=== PATIENT | female | born 1995 | race Caucasian/White ===

== ENCOUNTER 2019-11-12 18:50 | Inpatient (IN) | payer OTHER, SELFPAY ==
[~2019-11-12] VITALS: Ht 165.1 cm; Wt 52.2 kg
--- NOTE | 2019-11-12 18:50 | NUR ---
Patient BIBA ALS accompanied by [facility], transferred to bed 9. RN evaluating patient at bedside.
--- NOTE | 2019-11-12 19:08 | NUR ---
[place] [employer] at bedside.
--- NOTE | 2019-11-12 19:13 | NUR ---
The patient was placed on a 5150 hold by [facility] and subsequently transferred to bed 5 for further care. RN evaluating patient at bedside.
--- NOTE | 2019-11-12 19:30 | NUR ---
23F PRESENTS TO ED BIBA FOR SUICIDAL IDEATION. PT INGESTED UNOBTAINABLE AMOUNT OF SEROQUEL, ZOLOFT AND XANAX. PT APPEARS TO BE LETHARGIC. GCS 12. RESPONSIVE TO PAINFUL STIMULI AND CONFUSED.A/O X 3, TO NAME, DATE OF , EVENT. DENIES HEADACHE. DENEIS SOB/COUGH. RR EVEN AND UNLABORED. PT PLACED IN BED WITH SUICIDE PRECAUTIONS IN PLACE. CONNECTED TO RETORT FEEDER GROUND BONE AND PULSE OXIMETRY. SAFETY PRECAUTIONS IN PLACE WITH HOB ELEVATED, BED LOWEST AND LOCKED, RAILS X 2 . PMHX: DENIES RX: ZOLOFT, SEROQUEL, XANAX. NEGATIVE FOR COVID SCREENING. WEARING A MASK.
--- NOTE | 2019-11-12 19:34 | NUR ---
[facility] aware of patient. Will assistwith placement if and when needed and requested
[2019-11-12] MEDS ORDERED: NACL 0.9% 1,000 ML IV ONE (19:45)
[2019-11-12] MEDS ORDERED: LORazepam 2 MG/ML VIAL IVP ONE (19:45)
--- NOTE | 2019-11-12 20:21 | NUR ---
POISON CONTROL CONTACTED. SPOKE TO CHI REGARDING OVERDOSE OF MEDICATIONS OF PT WITH TAKING XANAX, SEROQUEL, ZOLOFT. INSTRUCTED TO MONITOR patient CMP.
[2019-11-12 20:25] VITALS: BP 135/96
[2019-11-12 20:58] LABS: BASOPHILS # (AUTO) 0.1 K/uL (0.00-0.22); BASOPHILS % (AUTO) 0.7 % (0.0-2.0); EOSINOPHILS % (AUTO) 0.1 % (0.0-4.0); HEMATOCRIT 36.9 % (36-48); HEMOGLOBIN 12.3 g/dL (12.0-16.0); LYMPHOCYTES # (AUTO) 0.6 K/uL (2.5-16.5); LYMPHOCYTES % (AUTO) 8.1 % (20.5-51.1); MEAN CORPUSCULAR HEMOGLOBIN 31 pg (27-31); MEAN CORPUSCULAR HGB CONC 33 g/dL (33-37); MEAN CORPUSCULAR VOLUME 92.6 fL (80-94); MONOCYTES # (AUTO) 0.5 K/uL (0.8-1.0); MONOCYTES % (AUTO) 7.1 % (1.7-9.3); NEUTROPHILS # (AUTO) 6.5 K/uL (1.8-7.7); PLATELET COUNT (AUTO) 229 K/uL (140-450); RED BLOOD CELL COUNT(AUTO) 3.98 MIL/uL (4.20-5.40); RED CELL DISTRIBUTION WIDTH 14.3 % (11.6-13.7); WHITE BLOOD COUNT (AUTO) 7.7 K/uL (4.8-10.8)
[2019-11-12 21:12] LABS: ALBUMIN 3.5 g/dL (3.4-5.0); ANION GAP 14.1 (8-16); CARBON DIOXIDE 24.6 mmol/L (21-32); CREATININE 0.9 mg/dL (0.6-1.3); TOTAL BILIRUBIN 0.2 mg/dL (0.0-1.0)
[2019-11-12 21:14] LABS: POTASSIUM 2.7 mmol/L (3.5-5.1)
[2019-11-12 21:15] LABS: ACETAMINOPHEN < 0.5 ug/ml (10-30); SALICYLATE < 2.8 mg/dL (2.8-20.0)
--- NOTE | 2019-11-12 21:15 | NUR ---
CRITICAL LAB REPORT RECEIVED FROM KAITLIN. POTASSIUM OF 2.7. ERMD TO SEE PATIENT.
[2019-11-12] MEDS ORDERED: POTASSIUM CHL 40 MEQ/ D5-1/2NS 1,000 ML IV ONE (21:30)
--- NOTE | 2019-11-12 23:41 | NUR ---
ADVISED BY POISON CONTROL TO REPEAT EKG IN 4 HOURS.
--- NOTE | 2019-11-13 01:00 | NUR ---
PT IN BED SLEEPING. K-RIDER STILL INFUSING.
--- NOTE | 2019-11-13 02:00 | NUR ---
ASLEEP IN BED WITH SITTER AT BEDSIDE. VISIBLE CHEST RISE AND FALL. NO FURTHER NEEDS AT THIS TIME. WILL CONTINUE
--- NOTE | 2019-11-13 03:00 | NUR ---
PT ASLEEP IN BED COMFORTABLY. NO FURTHER NEEDS AT THIS TIME. BED LOWEST AND LOCKED, RAILS X 2. SITTER AT BEDSIDE.
--- NOTE | 2019-11-13 04:01 | NUR ---
PT AMBULATED TO RESTROOM WITH STEADY GAIT. SITTER OUTSIDE THE DOOR FOR MONITORING.
--- NOTE | 2019-11-13 06:20 | NUR ---
COVID SWAB COLLECTED AND SENT TO LAB.
--- NOTE | 2019-11-13 07:30 | NUR ---
REPORT RECEIVED FROM HENRIK BAZAN, TRANSFER OF CARE AT THIS TIME
--- NOTE | 2019-11-13 07:48 | NUR ---
PT RESTING WITH EYES CLOSED, BREATHING EVEN AND UNLABORED. SITTER REMAINS AT BEDSIDE
--- NOTE | 2019-11-13 09:55 | NUR ---
PT RESTING WITH EYES CLOSED, BREATHING EVEN AND UNLABORED. SITTER REMAINS AT BEDSIDE
--- NOTE | 2019-11-13 11:01 | NUR ---
[facility] aware of patient. Will assist with placement if and when needed and requested.
--- NOTE | 2019-11-13 11:04 | NUR ---
PT WOKE UP, STARTED CRYING AND CUSSING, STATES "I JUST WANT TO " . SITTER REMAINS AT BEDSIDE
--- NOTE | 2019-11-13 11:10 | NUR ---
PT AMBULATED TO BATHROOM, STATES SHE IS NOT HUNGRY
--- NOTE | 2019-11-13 11:58 | NUR ---
PT RESTING WITH EYES CLOSED, BREATHING EVEN AND UNLABORED
--- NOTE | 2019-11-13 12:35 | NUR ---
SUBMITTED A NEW TELEPSYCH REQUEST FOR THE PATIENT.
[2019-11-13 12:50] LABS: APPEARANCE,URINE SL CLOUDY (CLEAR); BILIRUBIN,URINE NEGATIVE (NEGATIVE); BLOOD, URINE 3+ (NEGATIVE); COLOR,URINE YELLOW (YELLOW); LEUKOCYTE ESTERASE ,URINE 1+ (NEGATIVE); NITRITE, URINE NEGATIVE (NEGATIVE); UGLUCOSE NEGATIVE (NEGATIVE)
--- NOTE | 2019-11-13 12:50 | NUR ---
PT SPEAKING WITH TELEPSYCH AT THIS TIME VIA COMPUTER.
[2019-11-13] MEDS ORDERED: POTASSIUM CHLORIDE 10 MEQ TABER PO ONE ×2 (13:10→21:29)
[2019-11-13 13:18] LABS: BARBITURATE, URINE NEGATIVE ng/ml (NEG <=200); BENZODIAZEPINE, URINE POSITIVE ng/mL (NEG <=200); COCAINE, URINE NEGATIVE ng/mL (NEG <=300)
[2019-11-13 13:19] LABS: CANNABINOID, URINE POSITIVE ng/mL (NEG <=50); OPIATE, URINE NEGATIVE ng/mL (NEG <=2000); PHENCYCLIDINE SCREEN,URINE NEGATIVE ng/mL (NEG <=25)
--- NOTE | 2019-11-13 13:35 | NUR ---
PATIENT ALERT AND AWAKE, BREATHING EVEN AND UNLABORED. PT EATING LUNCH
[2019-11-13 13:52] LABS: RBC,URINE 11-20 (MOD) /HPF (0-5)
--- NOTE | 2019-11-13 14:10 | NUR ---
DR. GARCIA AT BEDSIDE EVALUATING PATIENT.
[2019-11-13] MEDS ORDERED: HALOPERIDOL IM 5 MG/ML VIAL ONE (16:24)
--- NOTE | 2019-11-13 16:25 | NUR ---
pt growing combative--removing all leads and clothing--screaming will not say what is wrong---offered water , food, or toilet use----pt screaming for brother who is not present----pt attempting to run out naked--- notified okayed for samantha im now underwear and gown placed back by female staff sitter remains at bedside--
[2019-11-13] MEDS ORDERED: HALOPERIDOL IM 5 MG/ML VIAL IM ONE (16:30)
--- NOTE | 2019-11-13 16:49 | NUR ---
talked to poison control Christian. He states based on VS and pt status he no longer has any recommendations from poison control. AKILA made aware
--- NOTE | 2019-11-13 19:29 | NUR ---
RECEIVED REPORT FROM KARISHMA BAZAN
--- NOTE | 2019-11-13 19:30 | NUR ---
REPORT GIVEN TO JANN BAZAN, TRANSFER OF CARE AT THIS TIME
--- NOTE | 2019-11-13 19:54 | NUR ---
S/W Na. Stated that they have called [facility] for placement
--- NOTE | 2019-11-13 20:10 | NUR ---
COVID SWAB DONE AND TAKEN TO LAB
--- NOTE | 2019-11-13 21:29 | NUR ---
PT SLEEPING, NO DISTRESS NOTED. PT CONTINUES TO BE MONITORED BY TECH FOR 5150 HOLD
--- NOTE | 2019-11-13 23:04 | NUR ---
PT SLEEPING, NO DISTRESS NOTED, RESPIRATIONS REGULAR AND UNLABORED. PT CONTINUES TO HAVE Q 15 MIN CHECKS
--- NOTE | 2019-11-14 01:24 | NUR ---
PT SLEEPING, NO DISTRESS NOTED, RESPIRATIONS REGULAR AND UNLABORED. PT CONTINUES TO HAVE Q 15 MIN CHECKS
--- NOTE | 2019-11-14 03:05 | NUR ---
PT SLEEPING, NO DISTRESS NOTED, RESPIRATIONS REGULAR AND UNLABORED. PT CONTINUES TO HAVE Q 15 MIN CHECKS
--- NOTE | 2019-11-14 04:19 | NUR ---
PT SLEEPING, NO DISTRESS NOTED, RESPIRATIONS REGULAR AND UNLABORED. PT CONTINUES TO HAVE Q 15 MIN CHECKS
--- NOTE | 2019-11-14 05:42 | NUR ---
PT AWAKE AND STATES SHES HAVING A SEIZURE. PT SITTING IN BED, NO SHAKING , ABLE TO SPEAK CLEARLY, V/S WNL. PT ALSO STATES SHES HAVING TOOTH AND NECK PAIN. ER DOC AWARE
[2019-11-14] MEDS ORDERED: ADENOSINE 6 MG/2 ML VIAL IVP ONE ×2 (05:53→06:15)
[2019-11-14] MEDS ORDERED: diphenhydrAMINE 50 MG/ML VIAL IVP ONE ×2 (05:55→07:00)
[2019-11-14] MEDS ORDERED: MAG SULF 2000 MG/WATER PREMIX 50 ML IV ONE ×2 (06:06→06:10)
--- NOTE | 2019-11-14 06:15 | NUR ---
PT STARTED HAVING SWEATING PROFUSELY, AND HAVING DECORTICATE MOVEMENTS WITH BILATERAL HANDS. PT'S HEARTRATE WAS 185, PT PLACED ON MONITOR AND PADS PLACED ON CHEST OF PT. ATTEMPTED TO GET EKG, PT UNABLE TO HOLD STILL. IV LINES ESTABLISHED AND PT GIVEN BENADRYL ORDERED. HEART RATE BEGAN TO COME DOWN, CURRENT H/R 118. MAG IVPB STARTED. PT MORE CALM , ABLE TO CONTROL MOVEMENTS. REMAINS ON MONITOR
--- NOTE | 2019-11-14 06:22 | NUR ---
LABS OBTAINED AND AWLAKED OVER TO LAB.
[2019-11-14] MEDS ORDERED: NACL 0.9% 1,000 ML IV ONE ×2 (06:35)
[2019-11-14 06:38] LABS: ANION GAP 19.3 (8-16); CARBON DIOXIDE 20.6 mmol/L (21-32); CREATININE 1.1 mg/dL (0.6-1.3)
[2019-11-14 06:49] LABS: POTASSIUM 2.9 mmol/L (3.5-5.1)
--- NOTE | 2019-11-14 06:50 | NUR ---
CRITICAL LAB VALUE OF POTASSIUM=2.9, BUN=6, CALCIUM 8.2. AKILA SARAVIA MADE AWARE.
--- NOTE | 2019-11-14 07:00 | NUR ---
PT HAVING DYSTONIC REACTION, CLENCHED JAW, DECORTICATE MOVEMENT WITH BILATERAL HANDS. MD AWARE NEW ORDER RECIVED AND CARRIED OUT
--- NOTE | 2019-11-14 07:16 | NUR ---
REPORT GIVEN TO GAB BAZAN
[2019-11-14] MEDS ORDERED: MORPHINE SULFATE 2 MG/ML SYR IVP PRN (07:25)
[2019-11-14] MEDS ORDERED: ACETAMINOPHEN 325 MG TAB PO PRN (07:25)
[2019-11-14] MEDS ORDERED: HYDROcodone/APAP 5/325 MG 1 TAB TAB PO PRN (07:25)
[2019-11-14] MEDS ORDERED: ONDANSETRON 4 MG/2 ML VIAL IM/IVP PRN (07:25)
[2019-11-14] MEDS ORDERED: DOCUSATE SODIUM 100 MG GELCAP PO PRN (07:25)
--- NOTE | 2019-11-14 07:25 | NUR ---
RECEIVED REPORT FROM BENI FORTE. PT ALERT AND AWAKE. VSS.
--- NOTE | 2019-11-14 07:47 | NUR ---
Madie miller in [facility] - 11/14/19 at 0748 by CHIRAG PT SITTING UP IN BED EATING BREAKFAST
--- NOTE | 2019-11-14 07:47 | NUR ---
PT SITTING UP IN BED EATING BREAKFAST
[2019-11-14 08:17] LABS: CHOL/HDL RATIO 2.8 (1-4.5); FREE T4 (FREE THYROXINE) 1.72 ng/dL (0.76-1.46); PHOSPHORUS 2.7 mg/dL (2.5-4.9); THYROID STIMULATING HORMONE 0.87 uIU/mL (0.34-3.74)
[2019-11-14] MEDS: NACL 0.9% 1,000 ML IV SCH ×2 (08:22→18:23)
--- NOTE | 2019-11-14 08:22 | NUR ---
IVF NS STARTED AT A RATE OF 100ML/HR.
--- NOTE | 2019-11-14 08:35 | NUR ---
PT HR STABILIZED AND BETWEEN 80S AND 90S. PT TAKEN OFF PADS.
--- NOTE | 2019-11-14 08:42 | NUR ---
PT AMBULATED TO BATHROOM, STEADY GAIT.
--- NOTE | 2019-11-14 08:45 | NUR ---
PT RETURNED TO BED, PLACED BACK ON MONITOR AND SITTING UP RIGHT IN BED EATING BREAKFAST.
[2019-11-14 08:54] LABS: PROTHROMBIN TIME 9.3 secs (10.8-13.4)
--- NOTE | 2019-11-14 09:02 | NUR ---
PT REPORTING MOUTH PAIN AND JAW STIFFNESS. PT GIVEN PRN ATIVAN .5ML IVP
[2019-11-14] MEDS: LORazepam 2 MG/ML VIAL IM/IVP PRN ×2 (09:06→16:07)
--- NOTE | 2019-11-14 09:15 | NUR ---
NADR TO ATIVAN, PT RESTING IN BED, EYES CLOSED, NO DISTRESS NOTED. SITTER AT BEDSIDE.
--- NOTE | 2019-11-14 10:56 | NUR ---
PATIENT HAS BEEN SCREENED AND CATEGORIZED LOW NUTRITION RISK. PATIENT WILL BE SEEN WITHIN 7 DAYS OF ADMISSION. 11/20/[address]
--- NOTE | 2019-11-14 12:17 | NUR ---
VS WNL, PT ASLEEP IN BED RR EVEN.
--- NOTE | 2019-11-14 15:15 | NUR ---
VS WNL, PT RESTING IN BED, NORMAL RISE AND FALL OF CHEST.
[2019-11-14] MEDS ORDERED: POTASSIUM CHLORIDE 40 MEQ, LIDOCAINE MPF 1% 25 MG in NACL 0.9% 250 ML IV SCH (15:30)
--- NOTE | 2019-11-14 15:47 | NUR ---
PT AMBULATED TO BATHROOM, STEADY GAIT.
--- NOTE | 2019-11-14 16:00 | NUR ---
PT REPORTED FEELING ANXIOUS AND HEADACHE 10/. PRN RX GIVEN.
--- NOTE | 2019-11-14 17:19 | NUR ---
VS WNL. PT ASLEEP IN BED RR EVEN AND UNLABORED.
--- NOTE | 2019-11-14 18:54 | NUR ---
SPOKE TO PTS MOTHER, UPDATED HER ON PTS STATUS. TOLD HER PT WAS ASLEEP AND THAT SHE CAN CALL BACK LATER TO SPEAK WITH PT.
--- NOTE | 2019-11-14 19:14 | NUR ---
REPORT GIVEN TO BENI BURKS FOR TRANSFER OF CARE.
--- NOTE | 2019-11-14 19:15 | NUR ---
RECIEVED REPORT FROM BENI DE GUZMAN. TRANSFER OF CARE AT THIS TIME.
--- NOTE | 2019-11-14 19:30 | NUR ---
PT ENCOURAGED TO EAT. NO APPETITE AT THIS TIME.
--- NOTE | 2019-11-14 20:21 | NUR ---
PT SLEEPING. EQUAL CHEST RISE AND FALL. CARDIAC MONTIOT AND SAFETY MEASURES IN PLACE.
--- NOTE | 2019-11-14 20:22 | NUR ---
Aware of patient and would be glad to assist with bed placement, send intake to fax [phone]
--- NOTE | 2019-11-14 22:00 | NUR ---
PT SLEEPING. EQUAL CHEST RISE AND FALL. CARDIAC MONTIOR AND SAFETY MEASURES IN PLACE.
--- NOTE | 2019-11-15 | NUR ---
PT SLEEPING. EQUAL CHEST RISE AND FALL. CARDIAC MONTIOR AND SAFETY MEASURES IN PLACE.
--- NOTE | 2019-11-15 02:00 | NUR ---
PT SLEEPING. EQUAL CHEST RISE AND FALL. CARDIAC MONTIOR AND SAFETY MEASURES IN PLACE.
--- NOTE | 2019-11-15 03:55 | NUR ---
PT AMBULATED TO WITH ASSISTANCE
--- NOTE | 2019-11-15 04:10 | NUR ---
PT PROVIDED WITH JUICE, APPLE SAUCE, CUP OF FRUIT, AND JELLO. PT DRANK 2 JUICE BOXES AND CUP OF FRUIT. PT CALM RELAXED AND COOPERATIVE.
--- NOTE | 2019-11-15 06:45 | NUR ---
AMBULATED PT TO RR. PT HOOKED BACK TO BUSINESS AND SERVICES INSTRUCTOR. BED LOCKED AND IN LOWEST POSITION. ALL PT NEEDS MET AT THIS TIME.
--- NOTE | 2019-11-15 06:51 | NUR ---
LAB AT BEDSIDE
[2019-11-15] MEDS: NACL 0.9% 1,000 ML IV SCH ×2 (07:00→15:16)
--- NOTE | 2019-11-15 07:09 | NUR ---
RECEIVED REPORT FROM BENI BURKS. TRANSFER OF CARE AT THIS TIME
--- NOTE | 2019-11-15 07:10 | NUR ---
REPORT GIVEN TO BENI VILLA. TRANSFER OF CARE AT THIS TIME.
[2019-11-15 07:14] LABS: HEMATOCRIT 40.7 % (36-48); HEMOGLOBIN 13.5 g/dL (12.0-16.0); MEAN CORPUSCULAR HEMOGLOBIN 31 pg (27-31); MEAN CORPUSCULAR HGB CONC 33 g/dL (33-37); PLATELET COUNT (AUTO) 247 K/uL (140-450); RED BLOOD CELL COUNT(AUTO) 4.38 MIL/uL (4.20-5.40); RED CELL DISTRIBUTION WIDTH 14.1 % (11.6-13.7); WHITE BLOOD COUNT (AUTO) 4.9 K/uL (4.8-10.8)
[2019-11-15 07:28] LABS: ANION GAP 13.6 (8-16); CARBON DIOXIDE 23.1 mmol/L (21-32); CREATININE 0.5 mg/dL (0.6-1.3); POTASSIUM 3.7 mmol/L (3.5-5.1)
[2019-11-15 07:37] LABS: LYMPHOCYTES % (MANUAL) 18 % (20-46); MONOCYTES % (MANUAL) 8 % (5-12)
--- NOTE | 2019-11-15 07:38 | NUR ---
PT SITTING UPRIGHT IN BED AWAKE AND ALERT. RR EVEN AND UNLABORED. VSS
[2019-11-15 07:45] LABS: MAGNESIUM 2.2 mg/dL (1.8-2.4); PHOSPHORUS 1.9 mg/dL (2.5-4.9)
--- NOTE | 2019-11-15 08:44 | NUR ---
SHIFT COMMANDER NOTE: MACHO CONTACTED ART FROM [facility] [phone]. PER ART, CLINICAL PACKET HAS NOT YET BEEN RECEIVED. MACHO CONTACTED ER NURSING STATION AND SPOKE TO BENI LUI. PER HU, SHE WILL FAX [phone] TO CASE MANAGEMENT TO BE SENT TO [facility]. MACHO WILL AWAIT 1303. Addendum: 11/15/19 at 0948 by Lawrence ENG MACHO FAXED CLINICALS TO [facility] [phone]. MACHO VERIFIED WITH ART FROM [facility] THAT THEY WERE RECEIVED.
[2019-11-15] MEDS: LORazepam 2 MG/ML VIAL IM/IVP PRN (08:54)
--- NOTE | 2019-11-15 10:04 | NUR ---
[facility] has received packet. [facility] notified Manager It Security Brice and primary nurse that patient's benefits are through [facility]([phone]) must be notified as they place their psych patients.
--- NOTE | 2019-11-15 10:11 | NUR ---
S/W Madie in ER, [facility] is aware of patient. Patient is pending Covid results for placement. If Covid result is negative [facility] will place patient in psych facility.
--- NOTE | 2019-11-15 10:43 | NUR ---
RESTING WITH EYES CLOSED, DENIES PAIN. NO COMPLAINTS AT THIS TIME. VSS. WILL CONTINUE TO MONITOR
--- NOTE | 2019-11-15 11:18 | NUR ---
PT ACCOMPANIED TO RESTROOM, AMBULATED WITH STEADY GAIT. POSITIONED FOR COMFORT.
--- NOTE | 2019-11-15 11:29 | NUR ---
TELEX OPERATOR NOTE: Patient's Orientation Person Situation Place Time Information Provided By PATIENT Comments SW MET WITH PATIENT AT BEDSIDE. Cold Rolling Supervisor, Realtionship and Phone Number CAREN ROD [phone] Healthcare Power of Director Of Intercollegiate Athletics No Does Patient Have a POLST No Identifying Problems Mental Health Complex Pyschosocial Substance Abuse Is A Social Work Consult Needed No Mandate Report Filed No Explanation Of Identifying Problems PATIENT IS A 23-YEAR-OLD FEMALE ADMITTED FOR TOXIC ENCEPHALOPATHY. PATIENT WAS PUT ON A 5150 HOLD FOR SUICIDAL IDEATION. PATIENT HAS NO PERTINENT PMHX. SW MET WITH PATIENT TO DISCUSS WHAT LED TO PATIENT'S HOSPITALIZATION. PATIENT STATED THAT SHE HAD A PANIC ATTACK AND BECAME PARANOID THAT PEOPLE WERE IN HER HOME. PATIENT STATED THAT SHE HAD TAKEN 4 2.0MG PILLS OF ALPRAZOLAM AND TOOK SEROQUEL AND ZOLOFT. PATIENT STATED THAT ALPRAZOLAM WAS NOT PRESCRIBED. PATIENT STATED THAT SHE RECEIVES MENTAL HEALTH SERVICES THROUGH [facility] AND THAT RESOURCES WOULD NOT BE NECESSARY. PATIENT STATED HER PSYCHIATRIST IS DR. FIGUEROA AND THAT HER THERAPIST'S NAME IS YADIEL (PATIENT COULD NOT RECALL LAST NAME OF THERAPIST). PATIENT STATED SHE HAS A HISTORY OF BIPOLAR DISORDER AND USES METHAMPHETAMINES EVERY OTHER DAY AND 2.0 MG OF XANAX A DAY. PATIENT REFUSED SUBSTANCE ABUSE RESOURCES. PATIENT STATED THAT SHE IS NOT CURRENTLY EXPERIENCING SI/HI OR AH/VH. PATIENT REQUESTED HOMELESS RESOURCES BECAUSE OF CONCERN THAT SHE WOULD NOT BE ABLE TO RETURN TO HER MOTHER'S HOME. PATIENT REQUESTED FOR SW TO SPEAK TO MOTHER ON HER BEHALF TO SEE IF PATIENT IS ABLE TO RETURN TO [address] [place] [id number]. MACHO SPOKE TO CAREN HOBSON [phone] REGARDING PATIENT'S DISCHARGE PLAN, AND CAREN AGREED FOR PATIENT TO RETURN HOME ONCE PATIENT IS DISCHARGED. MACHO NOTIFIED PATIENT. Admitted From Home Pre-Admission Level Of Functioning Status Independent/Ambulatory Prior Resources/Services Used In Last 12 Months Psychiatry Services Substance Use Prior DME No Prior DME Used Living Situation Lives With Family House Patient Had Caregiver No Home Support No Caregiver Issues Financial Issues No Known Financial Issue Factors/Needs Psych Placement/Referral Pt/Rep Participated In Discharge Plan Yes Patient/Family Agress With Discharge Plan Yes Discharge Plan Comments TENTATIVE DISCHARGE PLAN IS FOR PATIENT TO BE DISCHARGED TO PSYCHIATRIC FACILITY PENDING PSYCHIATRIC CONSULT. DC Plan Status Initiated Addendum: 11/16/19 at 1501 by Lawrence ENG MACHO SPOKE TO AUGUST FROM [facility] REGARDING PSYCHIATRIC PLACEMENT. AUGUST REQUESTED CLINICAL PACKET FROM . [facility] FAXED CLINICAL PACKET TO [phone]. MAY STATED SHE WOULD FOLLOW UP WITH MACHO ONCE PACKET IS RECEIVED. Addendum: 11/16/19 at 1629 by Lawrence ENG AUGUST REQUESTED COVID TESTING AND 5150. MACHO FAXED DOCUMENTS TO [phone].
--- NOTE | 2019-11-15 11:47 | NUR ---
SPOKE TO PTS MOTHER CAREN-- WOULD LIKE TO SPEAK TO PSYCHIATRIST WHEN ABLE TO. [phone]
--- NOTE | 2019-11-15 14:00 | NUR ---
Dr. Contreras is evaluating the patient at bedside.
--- NOTE | 2019-11-15 14:49 | NUR ---
PT SITTING UPRIGHT AWAKE AND ALERT. RR EVEN AND UNLABORED. VSS
--- NOTE | 2019-11-15 16:20 | NUR ---
AWAKE AND ALERT. DENIES PAIN/ANXIETY AT THIS TIME. POSITIONED FOR COMFORT. VSS, WILL CONTINUE TO MONITOR
[2019-11-15] MEDS ORDERED: cefTRIAXone 1,000 MG VIAL ONE (18:24)
--- NOTE | 2019-11-15 18:56 | NUR ---
Report received from outgoing shift. Will continue to monitor
--- NOTE | 2019-11-15 19:18 | NUR ---
Pt report given to BENI BURKS. Transfer of care at this time.
--- NOTE | 2019-11-15 19:22 | NUR ---
RECIEVED REPORT FROM BENI VILLA. TRANSFER OF CARE AT THIS TIME.
--- NOTE | 2019-11-15 20:20 | NUR ---
GAVE PT A SHEET INSTEAD OF A BLANKET AFTER ORAL TEMP OF 99.2. SLEEPING IN BED COMFORTABLY. SAFETY MEASURES IN PLACE.
--- NOTE | 2019-11-15 23:27 | NUR ---
PT PROVIDED WITH JELLP, APPLE SUACE, CRACKERS AND JUICE AFTER NOT EATING MEAL TRAY MEAL. PT IS CALM AND COOPERATIVE.
--- NOTE | 2019-11-15 23:40 | NUR ---
PT REQUESTING PRN SLEEP AIDE.
[2019-11-15] MEDS: ZOLPIDEM 5 MG TAB PO PRN (23:43)
--- NOTE | 2019-11-16 02:13 | NUR ---
NOTED HR OF 156, DR MATT NOTIFIED. ORDER FOR STAT EKG RECEIVED.
--- NOTE | 2019-11-16 02:30 | NUR ---
EKG PERFORMED BY SILVER SIDHU. GIVEN TO DR MATT. NO FURTHER ORDERS AT THIS TIME.
--- NOTE | 2019-11-16 03:30 | NUR ---
PT SLEEPING. EQUAL CHEST RISE AND FALL. CARDIAC MONTIOR AND SAFETY MEASURES IN PLACE.
--- NOTE | 2019-11-16 05:29 | NUR ---
PT SLEEPING. EQUAL CHEST RISE AND FALL. CARDIAC MONTIOR AND SAFETY MEASURES IN PLACE.
[2019-11-16 06:39] LABS: BASOPHILS # (AUTO) 0.1 K/uL (0.00-0.22); BASOPHILS % (AUTO) 1.6 % (0.0-2.0); EOSINOPHILS # (AUTO) 0.1 K/uL (0-0.4); EOSINOPHILS % (AUTO) 1.3 % (0.0-4.0); HEMOGLOBIN 12.9 g/dL (12.0-16.0); LYMPHOCYTES # (AUTO) 1.4 K/uL (2.5-16.5); LYMPHOCYTES % (AUTO) 36.2 % (20.5-51.1); MEAN CORPUSCULAR HEMOGLOBIN 30 pg (27-31); MEAN CORPUSCULAR HGB CONC 33 g/dL (33-37); MEAN CORPUSCULAR VOLUME 91.8 fL (80-94); MONOCYTES # (AUTO) 0.5 K/uL (0.8-1.0); NEUTROPHILS # (AUTO) 1.8 K/uL (1.8-7.7); NEUTROPHILS % (AUTO) 46.9 % (42.2-75.2); PLATELET COUNT (AUTO) 270 K/uL (140-450); RED BLOOD CELL COUNT(AUTO) 4.25 MIL/uL (4.20-5.40); WHITE BLOOD COUNT (AUTO) 3.9 K/uL (4.8-10.8)
--- NOTE | 2019-11-16 07:20 | NUR ---
RECEIVED REPORT FROM VITALIY BAZAN.
--- NOTE | 2019-11-16 07:25 | NUR ---
REPORT GIVEN TO BENI PRETTY. TRANSFER OF CARE AT THIS TIME.
--- NOTE | 2019-11-16 07:40 | NUR ---
PT AMBULATED TO RESTROOM WITH STEADY GAIT. VSS. RESP EVEN AND UNLABORED. HR: 97. DENIES ANY PAIN AT THIS TIME
--- NOTE | 2019-11-16 08:18 | NUR ---
FOOD TRAY PLACED AT BEDSIDE. PT STATES SHE IS NOT HUNGRY AT THIS TIME
[2019-11-16] MEDS: NACL 0.9% 1,000 ML IV SCH ×3 (09:23→19:41)
--- NOTE | 2019-11-16 10:45 | NUR ---
PT SPOKE TO MOTHER ON PHONE
[2019-11-16 11:15] LABS: ANION GAP 14.7 (8-16); CARBON DIOXIDE 23.6 mmol/L (21-32); CREATININE 0.7 mg/dL (0.6-1.3); POTASSIUM 3.3 mmol/L (3.5-5.1)
--- NOTE | 2019-11-16 13:00 | NUR ---
VSS. PT AWAKE AND ALERT. RESP EVEN AND UNLABORED. ALL NEEDS MET AT THIS TIME
--- NOTE | 2019-11-16 13:45 | NUR ---
Covid results have been faxed to [facility]/ Bed finders, they will work on placement for this pt.
[2019-11-16] MEDS ORDERED: POTASSIUM PHOSPHATE 15 MM in NACL 0.9% 250 ML IV SCH (14:00)
--- NOTE | 2019-11-16 14:04 | NUR ---
Covid results faxed to [facility] at [phone].
--- NOTE | 2019-11-16 14:06 | NUR ---
RECEIVED CALL FROM PATIENT'S MOTHER ASKING THAT THE PATIENT BE ALLOWED TO SIGN RELEASE OF INFROMATION FORM SO SHE COULD "SET UP APPOINTMENTS AND STUFF" FOR MY DAUGHTER. MOTHER BECAME UPSET AND INSISTENT. THIS RN WILL MAKE CALL TO PSYCH FOR CLEARANCE. SPOKE WITH DR. LAY WHO STATED PATIENT IS ABLE TO SIGN THE RELEASE OF INFORMATION FORM. UPDATE TO PATIENT'S MOTHER.
--- NOTE | 2019-11-16 14:50 | NUR ---
VSS. PT AWAKE AND ALERT. RESP EVEN AND UNLABORED. ALL NEEDS MET AT THIS TIME
--- NOTE | 2019-11-16 19:17 | NUR ---
RECEIVED REPORT FROM SUKHWINDER BAZAN FOR CONTINUITY OF CARE.
--- NOTE | 2019-11-16 19:30 | NUR ---
PT A&OX4. LAC INTACT, PATENT, GOOD BLOOD RETURN. RESTING IN BED, CALM. RESPIRATIONS EVEN AND UNLABORED. CHEST RISE IS SYMMETRICAL. WILL CONTINUE TO MONITOR. Addendum: 11/16/19 at 2058 by [email or web address] IV SITE LAC.
--- NOTE | 2019-11-16 19:30 | NUR ---
PT AMBULATED TO RESTROOM Addendum: 11/16/19 at 1943 by [email or web address] ACCOMPANIED BY RN. AMBULATED BACK TO BED 05. STEADY GAIT.
[2019-11-16] MEDS: ZOLPIDEM 5 MG TAB PO PRN (20:55)
--- NOTE | 2019-11-16 20:56 | NUR ---
PT REQUESTING SOMEHTING FOR SLEEP. AMBIEN PO PILL ADM. PT TOLERATED WELL.
--- NOTE | 2019-11-16 21:09 | NUR ---
PT SPEAKING WITH MOTHER ON THE PHONE AT THIS TIME
--- NOTE | 2019-11-16 23:30 | NUR ---
PT RESTING IN BED, EYES CLOSED. RESPIRATIONS EVEN AND UNLABORED. 1:1 MON[address]ORING. SAFTEY PRECAUTIONS IN PLACE. WILL CONTINUE TO MONITOR.
--- NOTE | 2019-11-17 01:27 | NUR ---
PT RESTING IN BED, EYES CLOSED. RESPIRATIONS EVEN AND UNLABORED. 1:1 MON[address]ORING. SAFTEY PRECAUTIONS IN PLACE. WILL CONTINUE TO MONITOR.
--- NOTE | 2019-11-17 02:40 | NUR ---
PT ACCOMPANIED TO RESTROOM, AMBULATED WITH STEADY GAIT.
--- NOTE | 2019-11-17 02:42 | NUR ---
PT ACCOMPANIED BACK TO BED 05 , AMBULATED WITH STEADY GAIT.
--- NOTE | 2019-11-17 04:07 | NUR ---
PT RESTING IN BED, EYES CLOSED, RESPIRATIONS EVEN AND UNLABORED. CHEST RISE IS SYMMETRICAL. 1:1 MONITORING. VSS. WILL CONTINUE TO MONITOR.
--- NOTE | 2019-11-17 04:55 | NUR ---
PT ACCOMPANIED TO RESTROOM, AMBULATED WITH STEADY GAIT.
--- NOTE | 2019-11-17 04:57 | NUR ---
PT ACCOMPANIED BACK TO BED 05 , AMBULATED WITH STEADY GAIT.
--- NOTE | 2019-11-17 05:30 | NUR ---
LAC IV LEAKING. IV D/C. LFA 20 GUAGE IV INSERTED. INTACT, PATENT, GOOD BLOOD RETURN, CONNECTED TO IV FLUIDS. WILL CONTINUE TO MONITOR.
[2019-11-17] MEDS: NACL 0.9% 1,000 ML IV SCH ×2 (06:37→15:23)
--- NOTE | 2019-11-17 07:01 | NUR ---
PT ACCOMPANIED TO RESTROOM, AMBULATED WITH STEADY GAIT. AND AMBULATED BACK TO BED 05. PT PLACED ON TOUR CONSULTANT. 1:1 MONITORING. SAFETY PRECAUTIONS IN PLACE.
--- NOTE | 2019-11-17 07:15 | NUR ---
REPORT GIVEN TO BENI BALLARD FOR CONTINUED CARE. PT IN STABLE CONDITION
--- NOTE | 2019-11-17 07:15 | NUR ---
OBTAINED REPORT FROM ANGI BAZAN FOR CONTINUITY OF CARE
--- NOTE | 2019-11-17 09:34 | NUR ---
PT RESTING IN BED, SIDE RAIL X2. VSS
[2019-11-17 09:39] LABS: BASOPHILS # (AUTO) 0.1 K/uL (0.00-0.22); BASOPHILS % (AUTO) 1.3 % (0.0-2.0); EOSINOPHILS % (AUTO) 0.8 % (0.0-4.0); HEMATOCRIT 40.5 % (36-48); HEMOGLOBIN 13.6 g/dL (12.0-16.0); LYMPHOCYTES # (AUTO) 1.8 K/uL (2.5-16.5); MEAN CORPUSCULAR HEMOGLOBIN 31 pg (27-31); MEAN CORPUSCULAR HGB CONC 34 g/dL (33-37); MEAN CORPUSCULAR VOLUME 91.8 fL (80-94); MONOCYTES # (AUTO) 0.5 K/uL (0.8-1.0); MONOCYTES % (AUTO) 10.4 % (1.7-9.3); NEUTROPHILS # (AUTO) 2.5 K/uL (1.8-7.7); NEUTROPHILS % (AUTO) 50.5 % (42.2-75.2); PLATELET COUNT (AUTO) 290 K/uL (140-450); RED BLOOD CELL COUNT(AUTO) 4.41 MIL/uL (4.20-5.40); RED CELL DISTRIBUTION WIDTH 14.3 % (11.6-13.7); WHITE BLOOD COUNT (AUTO) 4.9 K/uL (4.8-10.8)
[2019-11-17 10:12] LABS: ANION GAP 15.9 (8-16); CARBON DIOXIDE 24.6 mmol/L (21-32); CREATININE 0.6 mg/dL (0.6-1.3); POTASSIUM 3.5 mmol/L (3.5-5.1)
--- NOTE | 2019-11-17 10:15 | NUR ---
PT TAKEN TO TAKE SHOWER, EMT ALFREDO WITH PT
[2019-11-17 10:17] LABS: MAGNESIUM 1.9 mg/dL (1.8-2.4); PHOSPHORUS 3.2 mg/dL (2.5-4.9)
--- NOTE | 2019-11-17 10:41 | NUR ---
PT RESTING IN BED, SIDE RAIL X2. VSS
--- NOTE | 2019-11-17 11:29 | NUR ---
DC PLANNING: RECEIVED A CALL FROM [facility] [phone] SPOKE WITH JULIAN ,STATED PT NEEDS TO BE PO ABX BECAUSE PSYCH FACILITY WON'T GIVE IV ABX. DISCUSSED WITH DR CORTES AND WILL CHANGE TO PO. FAXED ALL THE CLINICALS TO [facility] TO FOLLOW
--- NOTE | 2019-11-17 11:39 | NUR ---
Dr. Walker is evaluating the patient at bedside.
--- NOTE | 2019-11-17 12:31 | NUR ---
PT RESTING IN BED, SIDE RAIL X2
--- NOTE | 2019-11-17 12:34 | NUR ---
PT PROVIDED WITH FOOD TRAY
[2019-11-17] MEDS ORDERED: LEVO750T2 PO (12:35)
--- NOTE | 2019-11-17 12:58 | NUR ---
SPOKE TO ILEANA FROM [facility] IN REGARDS OF PT TRANSFER. PER ILEANA WILL CONTACT [facility] DOCTOR TO DISCUSS TRANSFER. WILL CALL BACK TO AYANNA MONTILLA TO CONFIRM TRANSFER. PHONE: [phone]
--- NOTE | 2019-11-17 15:12 | NUR ---
PT RESTING IN BED, SIDE RAIL X2. CALM, COOPERATIVE, NON COMBATIVE.
--- NOTE | 2019-11-17 16:56 | NUR ---
PT RESTING IN BED, SIDE RAIL X2. CALM, COOPERATIVE, NON COMBATIVE.
--- NOTE | 2019-11-17 17:58 | NUR ---
SPOKE WITH MOTHER AND NOTFIED HER ABOUT TRANSFER. VERBALIZED UNDERSTANDING. ALL QUESTIONS ANSWERED.
--- NOTE | 2019-11-17 18:20 | NUR ---
SPOKE TO AUGUST RN FROM [facility]. REPORT GIVEN, ALL QUESTIONS ANSWERED. RECEIVING FACILITY ACKNOWLEDGES PT BEING SENT FROM [facility]. PHONE: [phone]
--- NOTE | 2019-11-17 18:38 | NUR ---
[facility] B[facility] UNIT 291 GIVEN REPORT OF PATIENT, PAPERWORK AND PATIENTS BELONGINGS.
[2019-11-17 18:43] VITALS: BP 122/60
--- NOTE | 2019-11-17 18:43 | NUR ---
Patient to be transferred to [facility]. Is being transferred due to LEVEL OF CARE. Receiving facility has accepting physician and available space. ER physician has signed transfer form. Patient or responsible republican has agreed to transfer and signed form. Patient belongings inventoried and will be sent with patient. Copy of nursing notes, lab reports, EKG, Physicians Orders and X-rays to be sent with patient. Report called to AUGUST RN at receiving facility. [facility] ambulance service has been called for transfer.
[2019-11-18] MEDS ORDERED: levoFLOXacin 750 MG TAB PO SCH (09:00)
== END 2019-11-17 18:43 | DRG 918 ==
LOC: MED 18:50 → EEVIPCON 18:50 → MTU 11-14 07:23
PROVIDERS: ADMIT Family Medicine; ATTEND Family Medicine
DX: T43.622A Poisoning by amphetamines, intentional self-harm, initial encounter (principal); N39.0 Urinary tract infection, site not specified; F41.9 Anxiety disorder, unspecified; F32.9 Major depressive disorder, single episode, unspecified; E87.6 Hypokalemia; F29 Unspecified psychosis not due to a substance or known physiological condition; F20.9 Schizophrenia, unspecified; F17.210 Nicotine dependence, cigarettes, uncomplicated; E05.90 Thyrotoxicosis, unspecified without thyrotoxic crisis or storm; E83.41 Hypermagnesemia; Z20.828 Contact with and (suspected) exposure to other viral communicable diseases; E83.39 Other disorders of phosphorus metabolism; F19.19 Other psychoactive substance abuse with unspecified psychoactive substance-induced disorder; E78.5 Hyperlipidemia, unspecified; Y92.89 Other specified places as the place of occurrence of the external cause
CPT/HCPCS: 36415; 71045; 80048; 80053; 80305; 81001; 82150; 83036; 83690; 83735; 83880; 84100; 84132; 84439; 84443; 84484; 85025; 85610; 85730; 87086; 93005; 96365; 96366; 96375; 99285; G0480; G0482; J0153; J0696; J1200; J1630; J2001; J2060; J3475; J3480; J7030; J7060; Q0092; U0003-CS

== ENCOUNTER 2020-12-18 23:14 | Emergency (ER) | payer OTHER, SELFPAY ==
[~2020-12-18] VITALS: Ht 162.6 cm; Wt 49.9 kg
[~2020-12-18 23:14] MED LIST: LEVO750T2 PO
[2020-12-18 23:25] VITALS: BP 99/58
[2020-12-18] MEDS ORDERED: NACL 0.9% 1,000 ML IV ONE (23:25)
--- NOTE | 2020-12-18 23:28 | NUR ---
24 Y/O FEMALE PATIENT BIBA C/O UNKNOWN DRUG INGESTION. PER EMS, "PT WAS FOUND OUTSIDE HER HOME THROWING ROCKS. SHE HAD A LACERATION ON HER NOSE, AND RT INDEX FINGER. FLOR HINOJOSA WAS ON SCENE." PT IS TACHYCARDIC AT 140s, BP IS 99/58. NKA PMH: UNABLE TO OBTAIN
[2020-12-19 00:48] LABS: BARBITURATE, URINE NEGATIVE ng/ml (NEG <=200); BENZODIAZEPINE, URINE POSITIVE ng/mL (NEG <=200); CANNABINOID, URINE NEGATIVE ng/mL (NEG <=50); COCAINE, URINE NEGATIVE ng/mL (NEG <=300); OPIATE, URINE NEGATIVE ng/mL (NEG <=2000); PHENCYCLIDINE SCREEN,URINE NEGATIVE ng/mL (NEG <=25)
--- NOTE | 2020-12-19 00:55 | NUR ---
Patient discharged with v/s stable. Written and verbal after care instructions given and explained. Patient verbalized understanding. Ambulatory with steady gait. All questions addressed prior to discharge. Advised to follow up with PMD.
[2020-12-19 00:57] VITALS: BP 99/58
== END 2020-12-19 00:55 | disposition home or self-care (01) ==
LOC: MED 23:14
DX: S61.212A Laceration without foreign body of right middle finger without damage to nail, initial encounter (principal); Z79.899 Other long term (current) drug therapy; W45.8XXA Other foreign body or object entering through skin, initial encounter; Y93.89 Activity, other specified; Y92.89 Other specified places as the place of occurrence of the external cause; Y99.8 Other external cause status
CPT/HCPCS: 80305; 93005; 99283; J7030